=== PATIENT | male | born 1970 | race Caucasian/White ===

== ENCOUNTER 2017-05-13 13:09 | Emergency (ER) | payer OTHER ==
--- NOTE | 2017-05-13 15:29 | UC ---
Respiratory Complaint HPI - HPI Summary HPI Summary: Pt presents with 6 days of body aches, sore throat, fever, and chills. He says that these symptoms have improved, but over the last 2 days his cough has been productive. He has been taking mucinex with mild relief. Denies SOB, chest pain , abdominal pain, n/v/d/c. - History of Current Complaint Chief Complaint: UCRespiratory Stated Complaint: COUGH,FEVER Time Seen by Provider: 05/13/17 15:04 Hx Obtained From: Patient Onset/Duration: Gradual Onset Pain Intensity: 0 - Allergies/Home Medications Allergies/Adverse Reactions: Allergies Allergy/AdvReac Type Severity Reaction Status Date / Time Sulfa (Sulfonamide Allergy Unknown Unknown Verified 05/13/17 15:10 Antibiotics) Reaction Details Home Medications: Home Medications Fenofibrate Nanocrystallized [Tricor] 05/13/17 [History] Ibuprofen TAB* [Advil TAB*] 400 mg PO ONCE PRN 05/13/17 [History Confirmed 05/13] guaiFENesin ER TAB [Mucinex*] 600 mg PO PRN 05/13/17 [History] PMH/Surg Hx/FS Hx/Imm Hx Previously Healthy: Yes Endocrine History: Dyslipidemia Respiratory History: Asthma - Surgical History Surgical History: None - Family History Known Family History: Positive: Unknown - Social History Occupation: Employed Full-time Lives: With Family Alcohol Use: None Substance Use Type: None Smoking Status (MU): Never Smoked Tobacco Review of Systems Constitutional: Negative Skin: Negative Eyes: Negative ENT: Negative Respiratory: Cough Cardiovascular: Negative Gastrointestinal: Negative Musculoskeletal: Negative Neurological: Negative Psychological: Negative All Other Systems Reviewed And Are Negative: Yes Physical Exam Triage Information Reviewed: Yes Appearance: Well-Appearing, No Pain Distress, Well-Nourished Vital Signs: Initial Vital Signs Temp 97.0 F 05/13/17 15:06 Pulse 86 05/13/17 15:06 Resp 16 05/13/17 15:06 BP 108/60 05/13/17 15:06 Pulse Ox 98 05/13/17 15:06 Vital Signs Reviewed: Yes Eyes: Positive: Conjunctiva Clear. Negative: Conjunctiva Inflamed, Discharge ENT: Positive: Hearing grossly normal, Pharynx normal, TMs normal, Uvula midline. Negative: Pharyngeal erythema, Nasal congestion, Nasal drainage, TM bulging, TM dull, TM red, Tonsillar swelling, Tonsillar exudate, Hoarse voice, Sinus tenderness Neck: Positive: Supple, Nontender, No Lymphadenopathy Respiratory: Positive: No respiratory distress, No accessory muscle use, Wheezing - Moderate throughout. Negative: Crackles Cardiovascular: Positive: RRR, No Murmur, Pulses Normal Neurological: Positive: Alert Psychological: Positive: Age Appropriate Behavior Skin: Negative: rashes UC Diagnostic Evaluation - Laboratory O2 Sat by Pulse Oximetry: 98 Re-Evaluation - Re-Evaluation First Eval Re-Evaluation Time: 16:15 Change: Improved Comment: Pt reports moderate improvement of breathing. Lung sounds significantly improved with only mild scattered wheezes Respiratory Course/Dx - Course Course Of Treatment: CXR: IMPRESSION: NO ACTIVE CARDIOPULMONARY DISEASE. Duoneb : improved. Continue with at home albuterol inhaler as needed. Will rx for zpak given his history of asthma - Differential Dx/Diagnosis Provider Diagnoses: Bronchitis Discharge - Discharge Plan Condition: Stable Disposition: HOME Prescriptions: Azithromycin TAB* [Zithromax TAB (Z-NABEEL) 250 mg #6 tabs] 2 tab PO .TODAY, THEN 1 DAILY #1 nabeel Patient Education Materials: Acute Bronchitis (ED) Forms: *Work Release Referrals: No Primary Care Phys,NOPCP [Primary Care Provider] - Additional Instructions: If you develop a fever, shortness of breath, chest pain, new or worsening symptoms - please call your PCP or go to the ED.
[2017-05-13] MEDS ORDERED: Albuterol/Ipratropium NEB.SOL* Albuterol 2.5 MG/Ipratropium 0.5 MG 3 ML INH ONE (15:32)
--- NOTE | 2017-05-13 16:12 | RAD ---
HISTORY: Cough COMPARISONS: None VIEWS: 4: Frontal dual-energy and lateral views of the chest. FINDINGS: CARDIOMEDIASTINAL SILHOUETTE: The cardiomediastinal silhouette is normal. MARLIN: The marlin are normal. PLEURA: The costophrenic angles are sharp. No pleural abnormalities are noted. LUNG PARENCHYMA: The lungs are clear. ABDOMEN: The upper abdomen is clear. There is no subphrenic gas. BONES AND SOFT TISSUES: No bone or soft tissue abnormalities are noted. OTHER: None. IMPRESSION: NO ACTIVE CARDIOPULMONARY DISEASE.
== END 2017-05-13 16:30 | disposition home or self-care (01) ==
LOC: UCEAST 13:09
DX: J45.909 Unspecified asthma, uncomplicated (principal); E78.5 Hyperlipidemia, unspecified; Z88.2 Allergy status to sulfonamides
CPT/HCPCS: 71046; 99202; A9270-GY; G0463